=== PATIENT | male | born 1940 | race Caucasian/White ===

== ENCOUNTER 2016-08-12 12:43 | Inpatient (IN) ==
--- NOTE | 2016-08-12 12:52 | Emergency Department Note ---
Disposition Clinical Impression: Severe sepsis, Dehydration, Weakness, Parkinsons disease, Frail elderly, Cerebral ischemia, UTI (urinary tract infection), Anemia Disposition: Admitted As Inpatient Referrals: Nir Evans MD [Primary Care Provider] - General Adult HPI - General Stated complaint: possible CVA Time Seen by Provider: 08/12/16 12:51 - History of Present Illness HPI Narrative: 76-year-old male comes in from home, he was brought in by his daughter and his . They report patient felt weak last evening before bed and became weak hurt about 11:30 today. They called EMS who were given to take him to open his hospital but the family did not want him to go there so they put him in the car and came here. They live in [facility]. The patient did not fall. They report he was generally weak and could not stand up well and they had to assist him. They report he was shaking and jerking of little bit but the patient states he remembers the entire event. There is no history of overt seizure. He is not known to be diabetic. The patient denies chest pain shortness of breath abdominal pain vomiting or diarrhea. The patient has had no trouble moving his arms or legs independently no slurred speech or facial droop. The family members report that they had him hold his arm up and out and he was able to do this, they also report he is able to stick his tongue out straight, they were assessing at home for possible stroke, they do not think he had a stroke because he was able to move his arms and legs properly and stick his tongue out straight.. He does have a history of Parkinson's disease and is generally weak in the morning, they report they think he was weaker this morning. No fevers coughs or acute back pain or headache are reported. - Related Data Home Medications Medication Instructions Recorded Confirmed Aspirin [Ecotrin] 325 mg PO DAILY 02/21/16 08/12/16 Atenolol [Tenormin] 25 mg PO DAILY 02/21/16 08/12/16 Carbidopa/Levodopa 25/100 [Sinemet 2 tab PO 5XD 02/21/16 08/12/16 25/100] Citalopram [CeleXA] 20 mg PO DAILY 02/21/16 08/12/16 Omeprazole [PriLOSEC] 20 mg PO DAILY 02/21/16 08/12/16 Simvastatin [Zocor] 20 mg PO HS 02/21/16 08/12/16 Amoxicillin [Amoxil] 500 mg PO TID 08/12/16 08/12/16 Cyanocobalamin (Vitamin B-12) 1,000 mcg PO DAILY 08/12/16 08/12/16 [Vitamin B12] Gabapentin [Neurontin] 300 mg PO TID 08/12/16 08/12/16 Allergies Allergy/AdvReac Type Severity Reaction Status Date / Time Sulfa (Sulfonamide AdvReac Hives Verified 08/12/16 13:02 Antibiotics) All systems ED: reviewed and negative except as stated. Past Medical History - Past Medical History Medical history: Reports: other (Parkinson's disease.) - Social History Smoking Status: Never smoker Alcohol use: Reports: none Drug use: Reports: none Physical Exam - General Limitations: no limitations General appearance: alert, in no apparent distress - Head Head exam: atraumatic, normocephalic, normal inspection - Eye Eye exam: Present: normal appearance, PERRL, EOMI - ENT ENT exam: normal exam, normal oropharynx, mucous membranes moist, TM's normal bilaterally, normal external ear exam - Neck Neck exam: Present: normal inspection, full ROM, trachea midline - Chest Chest inspection: Present: symmetric chest wall rise. Absent: tenderness - Respiratory Respiratory exam: Present: normal lung sounds bilaterally. Absent: respiratory distress, wheezes, accessory muscle use, prolonged expiratory phase - Cardiovascular Cardiovascular exam: Present: regular rate, normal rhythm, normal heart sounds - Abdominal Exam Abdominal exam: Present: soft, Non-Tender, normal bowel sounds. Absent: tenderness, distention, guarding, rebound, rigidity - Extremities Exam Extremities exam: Present: normal inspection, full ROM, normal capillary refill. Absent: tenderness, pedal edema, joint swelling, calf tenderness - Expanded Lower Extremity Exam Lower leg exam: Absent: Homans' sign Neurovascular/Tendon exam: Present: normal capillary refill. Absent: motor deficit, sensory deficit, tendon deficit, extremity cold to touch, pallor - Back Exam Back exam: Present: normal inspection, full ROM. Absent: tenderness, CVA tenderness (R), CVA tenderness (L), vertebral tenderness - Neurological Exam Neurological exam: Present: alert, oriented X3, CN II-XII intact. Absent: motor sensory deficit - Psychiatric Psychiatric exam: Present: normal affect, normal mood - Skin Skin exam: Present: warm, dry, intact, normal color. Absent: rash, cyanosis, diaphoresis, erythema, pallor, mottled Course - Reevaluation(s) Reevaluation #1: The family reports that the patient has an treated or a toothache with antibiotics over the last several days. He has now developed some diarrhea. I do not detect acute oropharyngeal pathology or dental abscess on examination. Vital Signs Temperature 97.7 F 08/12/16 12:53 Pulse Rate 76 08/12/16 12:53 Respiratory Rate 16 08/12/16 12:53 Blood Pressure 95/55 08/12/16 12:53 O2 Sat by Pulse Oximetry 95 08/12/16 12:53 Temperature 97.7 F 08/12/16 12:53 Pulse Rate 85 08/12/16 16:23 Respiratory Rate 16 08/12/16 16:23 Blood Pressure 119/55 08/12/16 16:23 O2 Sat by Pulse Oximetry 97 08/12/16 16:23 Oxygen Delivery Oxygen Delivery Room Air Medical Decision Making - MDM Narrative Medical decision making narrative: There were reports of some diarrhea however the patient produced a large stool here which did not appear to be loose or watery. The patient has an elevated white blood cell count, elevated lactate, an abnormal urinalysis, he meet sepsis criteria, he is elderly and feels very weak, he was given IV fluids, and antibiotics. The patient is very ill and will require hospital admission. I discussed the case with the hospitalist on-call who has accepted the patient to their care. - Lab Data Lab results reviewed: Yes I reviewed the patient's lab results. Result diagrams: 08/12/16 13:30 08/12/16 13:30 Lab Results 08/12/16 08/12/16 08/12/16 Range/Units 13:30 13:30 13:30 WBC 23.4 H (4.3-11.1) K/mcL RBC 4.15 L (4.19-5.50) M/mcL Hgb 12.4 L (12.9-16.9) g/dL Hct 37.8 (37.5-50.1) % MCV 91.1 (83.0-100.0) fL MCH 29.9 (28.0-33.3) pg MCHC 32.8 (31.6-35.5) g/dL RDW 12.6 (11.5-14.5) % Plt Count 210 (140-400) K/mcL MPV 9.8 (9.4-12.4) fL Immature Gran % 0.8 (0-4) % Seg Neutrophils % 89.3 % Lymphocytes % 3.4 % Monocytes % 6.3 % Eosinophils % 0.0 % Basophils % 0.2 % Neutrophils # 20.9 H (1.6-8.9) K/mcL Lymphocytes # 0.8 (0.6-4.6) K/mcL Monocytes # 1.5 H (0.0-1.3) K/mcL Eosinophils # 0.0 (0.0-0.6) K/mcL Basophils # 0.0 (0.0-0.2) K/mcL Immature Plt Fraction 3.4 (1.1-6.1) % PT 14.1 H (9.4-12.1) Seconds INR 1.3 APTT 31.2 (26.0-36.0) Seconds Sodium 137 (136-145) mEq/L Potassium 4.2 (3.5-4.5) mEq/L Chloride 98 (98-109) mEq/L Carbon Dioxide 27 (19-29) mEq/L BUN 28 H (8-26) mg/dL Creatinine 1.44 H (0.72-1.25) mg/dL Est GFR ( Amer) 58 L (> 60) Est GFR (Non-Af Amer) 48 L (> 60) BUN/Creatinine Ratio 19 (6-26) Glucose 145 H (70-99) mg/dL Calculated Osmolality 292 (280-300) Lactic Acid (0.5-2.2) mmol/L Calcium 9.2 (8.6-10.8) mg/dL Total Bilirubin 0.9 (0.2-1.2) mg/dL Direct Bilirubin 0.4 (0.0-0.5) mg/dL Indirect Bilirubin 0.5 (0.0-1.2) mg/dL AST 8 (5-34) Units/L ALT < 6 (0-55) Units/L Alkaline Phosphatase 53 (38-126) Units/L Ammonia (18-72) mcmol/L Troponin I (0-0.03) ng/mL C-Reactive Protein 92 H (Less than 5) mg/L Serum Total Protein 7.3 (6.0-8.3) g/dL Albumin 3.5 (3.5-5.0) g/dL Globulin 3.8 H (2.4-3.5) g/dL Albumin/Globulin Ratio 0.9 L (1.1-2.2) Urine Color (Yellow) Urine Clarity (Clear) Urine pH (5.0-8.0) pH Units Ur Specific [place] (1.010-1.025) Urine Protein (Neg-Trace) mg/dL Urine Glucose (UA) (Normal) mg/dL Urine Ketones (Negative) mg/dL Urine Blood (Negative) Urine Nitrite (Negative) Urine Bilirubin (Negative) Urine Urobilinogen (Normal) mg/dL Ur Leukocyte Esterase (Negative) Urine Microscopic RBC (0-3) per hpf Urine Microscopic WBC (0-3) per hpf Ur Squamous Epith Cells (None-Few) per lpf Urine Bacteria (None-Few) per hpf Hyaline Casts (None-Few) per lpf Ur Culture Indicated? (NO) Urine Opiates Screen (Cczqqk=802) ng/mL Ur Barbiturates Screen (Coabgp=937) ng/mL Ur Phencyclidine Scrn (Cutoff=25) ng/mL Ur Amphetamines Screen (Schnke=4719) ng/mL U Benzodiazepines Scrn (Gtcicn=676) ng/mL Urine Cocaine Screen (Cutoff= 300) ng/mL U Marijuana (THC) Screen (Cutoff = 50) ng/mL Ethyl Alcohol < 10 (0-10) mg/dL 08/12/16 08/12/16 08/12/16 Range/Units 13:30 13:30 13:30 WBC (4.3-11.1) K/mcL RBC (4.19-5.50) M/mcL Hgb (12.9-16.9) g/dL Hct (37.5-50.1) % MCV (83.0-100.0) fL MCH (28.0-33.3) pg MCHC (31.6-35.5) g/dL RDW (11.5-14.5) % Plt Count (140-400) K/mcL MPV (9.4-12.4) fL Immature Gran % (0-4) % Seg Neutrophils % % Lymphocytes % % Monocytes % % Eosinophils % % Basophils % % Neutrophils # (1.6-8.9) K/mcL Lymphocytes # (0.6-4.6) K/mcL Monocytes # (0.0-1.3) K/mcL Eosinophils # (0.0-0.6) K/mcL Basophils # (0.0-0.2) K/mcL Immature Plt Fraction (1.1-6.1) % PT (9.4-12.1) Seconds INR APTT (26.0-36.0) Seconds Sodium (136-145) mEq/L Potassium (3.5-4.5) mEq/L Chloride (98-109) mEq/L Carbon Dioxide (19-29) mEq/L BUN (8-26) mg/dL Creatinine (0.72-1.25) mg/dL Est GFR ( Amer) (> 60) Est GFR (Non-Af Amer) (> 60) BUN/Creatinine Ratio (6-26) Glucose (70-99) mg/dL Calculated Osmolality (280-300) Lactic Acid 3.2 H (0.5-2.2) mmol/L Calcium (8.6-10.8) mg/dL Total Bilirubin (0.2-1.2) mg/dL Direct Bilirubin (0.0-0.5) mg/dL Indirect Bilirubin (0.0-1.2) mg/dL AST (5-34) Units/L ALT (0-55) Units/L Alkaline Phosphatase (38-126) Units/L Ammonia 14 L (18-72) mcmol/L Troponin I 0.01 (0-0.03) ng/mL C-Reactive Protein (Less than 5) mg/L Serum Total Protein (6.0-8.3) g/dL Albumin (3.5-5.0) g/dL Globulin (2.4-3.5) g/dL Albumin/Globulin Ratio (1.1-2.2) Urine Color (Yellow) Urine Clarity (Clear) Urine pH (5.0-8.0) pH Units Ur Specific [place] (1.010-1.025) Urine Protein (Neg-Trace) mg/dL Urine Glucose (UA) (Normal) mg/dL Urine Ketones (Negative) mg/dL Urine Blood (Negative) Urine Nitrite (Negative) Urine Bilirubin (Negative) Urine Urobilinogen (Normal) mg/dL Ur Leukocyte Esterase (Negative) Urine Microscopic RBC (0-3) per hpf Urine Microscopic WBC (0-3) per hpf Ur Squamous Epith Cells (None-Few) per lpf Urine Bacteria (None-Few) per hpf Hyaline Casts (None-Few) per lpf Ur Culture Indicated? (NO) Urine Opiates Screen (Wqqkah=896) ng/mL Ur Barbiturates Screen (Xkacfj=875) ng/mL Ur Phencyclidine Scrn (Cutoff=25) ng/mL Ur Amphetamines Screen (Uradqd=8391) ng/mL U Benzodiazepines Scrn (Xybjpk=342) ng/mL Urine Cocaine Screen (Cutoff= 300) ng/mL U Marijuana (THC) Screen (Cutoff = 50) ng/mL Ethyl Alcohol (0-10) mg/dL 08/12/16 08/12/16 Range/Units 16:33 16:33 WBC (4.3-11.1) K/mcL RBC (4.19-5.50) M/mcL Hgb (12.9-16.9) g/dL Hct (37.5-50.1) % MCV (83.0-100.0) fL MCH (28.0-33.3) pg MCHC (31.6-35.5) g/dL RDW (11.5-14.5) % Plt Count (140-400) K/mcL MPV (9.4-12.4) fL Immature Gran % (0-4) % Seg Neutrophils % % Lymphocytes % % Monocytes % % Eosinophils % % Basophils % % Neutrophils # (1.6-8.9) K/mcL Lymphocytes # (0.6-4.6) K/mcL Monocytes # (0.0-1.3) K/mcL Eosinophils # (0.0-0.6) K/mcL Basophils # (0.0-0.2) K/mcL Immature Plt Fraction (1.1-6.1) % PT (9.4-12.1) Seconds INR APTT (26.0-36.0) Seconds Sodium (136-145) mEq/L Potassium (3.5-4.5) mEq/L Chloride (98-109) mEq/L Carbon Dioxide (19-29) mEq/L BUN (8-26) mg/dL Creatinine (0.72-1.25) mg/dL Est GFR ( Amer) (> 60) Est GFR (Non-Af Amer) (> 60) BUN/Creatinine Ratio (6-26) Glucose (70-99) mg/dL Calculated Osmolality (280-300) Lactic Acid (0.5-2.2) mmol/L Calcium (8.6-10.8) mg/dL Total Bilirubin (0.2-1.2) mg/dL Direct Bilirubin (0.0-0.5) mg/dL Indirect Bilirubin (0.0-1.2) mg/dL AST (5-34) Units/L ALT (0-55) Units/L Alkaline Phosphatase (38-126) Units/L Ammonia (18-72) mcmol/L Troponin I (0-0.03) ng/mL C-Reactive Protein (Less than 5) mg/L Serum Total Protein (6.0-8.3) g/dL Albumin (3.5-5.0) g/dL Globulin (2.4-3.5) g/dL Albumin/Globulin Ratio (1.1-2.2) Urine Color Yellow (Yellow) Urine Clarity Hazy (Clear) Urine pH 5.0 (5.0-8.0) pH Units Ur Specific [place] 1.021 (1.010-1.025) Urine Protein Trace (Neg-Trace) mg/dL Urine Glucose (UA) Normal (Normal) mg/dL Urine Ketones Trace H (Negative) mg/dL Urine Blood Negative (Negative) Urine Nitrite Negative (Negative) Urine Bilirubin Negative (Negative) Urine Urobilinogen Normal (Normal) mg/dL Ur Leukocyte Esterase Large H (Negative) Urine Microscopic RBC 3-5 H (0-3) per hpf Urine Microscopic WBC TNTC H (0-3) per hpf Ur Squamous Epith Cells Moderate H (None-Few) per lpf Urine Bacteria Moderate H (None-Few) per hpf Hyaline Casts Moderate H (None-Few) per lpf Ur Culture Indicated? YES A (NO) Urine Opiates Screen Negative (Ewgpta=926) ng/mL Ur Barbiturates Screen Negative (Kroykf=335) ng/mL Ur Phencyclidine Scrn Negative (Cutoff=25) ng/mL Ur Amphetamines Screen Negative (Hnzqdt=5469) ng/mL U Benzodiazepines Scrn Negative (Fpoarn=625) ng/mL Urine Cocaine Screen Negative (Cutoff= 300) ng/mL U Marijuana (THC) Screen Negative (Cutoff = 50) ng/mL Ethyl Alcohol (0-10) mg/dL - Radiology Data Radiology results reviewed: Yes I reviewed the patient's radiology results.
[2016-08-12] MEDS ORDERED: 0.9 % Sodium Chloride 1,000 ML IVC ONE (13:00)
[2016-08-12 13:37] LABS: Basophils % 0.2 %; Hematocrit 37.8 % (37.5-50.1); Hemoglobin 12.4 g/dL (12.9-16.9); Immature Granulocytes % 0.8 % (0-4); Immature Platelets 3.4 % (1.1-6.1); Lymphocytes # 0.8 K/mcL (0.6-4.6); Lymphocytes % 3.4 %; Mean Corpuscular HGB Conc 32.8 g/dL (31.6-35.5); Mean Corpuscular Hemoglobin 29.9 pg (28.0-33.3); Mean Corpuscular Volume 91.1 fL (83.0-100.0); Mean Platelet Volume 9.8 fL (9.4-12.4); Monocytes # 1.5 K/mcL (0.0-1.3); Monocytes % 6.3 %; Neutrophils # 20.9 K/mcL (1.6-8.9); Platelet Count 210 K/mcL (140-400); Red Blood Count 4.15 M/mcL (4.19-5.50); Red Cell Distribution Width 12.6 % (11.5-14.5); Segmented Neutrophils % 89.3 %
[2016-08-12 13:45] LABS: INR 1.3; Prothrombin Time 14.1 Seconds (9.4-12.1)
[2016-08-12 13:47] LABS: Activated Partial Thrombo Time 31.2 Seconds (26.0-36.0)
[2016-08-12 13:51] LABS: Albumin 3.5 g/dL (3.5-5.0); Albumin/Globulin Ratio 0.9 (1.1-2.2); Alkaline Phosphatase 53 Units/L (38-126); Aspartate Amino Transferase 8 Units/L (5-34); BUN/Creatinine Ratio 19 (6-26); Bilirubin,Direct 0.4 mg/dL (0.0-0.5); Bilirubin,Indirect 0.5 mg/dL (0.0-1.2); Bilirubin,Total 0.9 mg/dL (0.2-1.2); Blood Urea Nitrogen 28 mg/dL (8-26); C-Reactive Protein 92 mg/L (Less than 5); Calcium 9.2 mg/dL (8.6-10.8); Carbon Dioxide 27 mEq/L (19-29); Chloride 98 mEq/L (98-109); Globulin 3.8 g/dL (2.4-3.5); Glucose 145 mg/dL (70-99); Osmolality,Calculated 292 (280-300); Potassium 4.2 mEq/L (3.5-4.5); Sodium 137 mEq/L (136-145); Total Protein 7.3 g/dL (6.0-8.3); eGFR For African Americans 58 (> 60); eGFR For Non-African Americans 48 (> 60)
[2016-08-12 13:52] LABS: Alanine Aminotransferase < 6 Units/L (0-55)
[2016-08-12 14:06] LABS: Ethanol < 10 mg/dL (0-10)
[2016-08-12] MEDS ORDERED: Vancomycin 1,000 MG in D5% in Water 250 ML IVPB ONE (14:19)
[2016-08-12] MEDS ORDERED: Piperacillin/Tazobactam 3.375 GM in D5% in Water (Mini-Bag+) 100 ML IVPB ONE (14:19)
[2016-08-12] MEDS ORDERED: metroNIDAZOLE 500 MG TABLET PO ONE (14:19)
[2016-08-12] MEDS ORDERED: methylPREDNISolone 125 MG/2 ML VIAL IVP ONE (15:16)
[2016-08-12] MEDS: 0.9 % Sodium Chloride 1,000 ML IVC SCH ×4 (16:29→21:39)
[2016-08-12 16:58] LABS: Bilirubin,Urine Negative (Negative); Blood,Urine Negative (Negative); Color,Urine Yellow (Yellow); Glucose,Urine (UA) Normal (Normal); Ketones,Urine Trace mg/dL (Negative); Leukocyte Esterase,Urine Large (Negative); Nitrite,Urine Negative (Negative); Protein,Urine Trace mg/dL (Neg-Trace); Specific Gravity,Urine 1.021 (1.010-1.025); Urobilinogen,Urine Normal (Normal)
[2016-08-12 17:01] LABS: Squamous Epithelial Cell,Urine Moderate per lpf (None-Few); WBC,Urine TNTC per hpf (0-3)
[2016-08-12 17:02] LABS: Clarity,Urine Hazy (Clear)
[2016-08-12 17:03] LABS: Amphetamine Screen,Urine Negative ng/mL (Cutoff=1000); Barbiturate Screen,Urine Negative ng/mL (Cutoff=200); Benzodiazepines Screen,Urine Negative ng/mL (Cutoff=200); Cannabinoid Screen,Urine Negative ng/mL (Cutoff = 50); Cocaine Screen,Urine Negative ng/mL (Cutoff= 300); Opiate Screen,Urine Negative ng/mL (Cutoff=300); Phencyclidine Screen,Urine Negative ng/mL (Cutoff=25)
[2016-08-12 17:19] LABS: Hyaline Casts,Urine Moderate per lpf (None-Few)
[2016-08-12 17:20] LABS: Bacteria,Urine Moderate per hpf (None-Few)
[2016-08-12] MEDS ORDERED: Naloxone 0.4 MG/ML INJ IVP PRN (17:49)
[2016-08-12] MEDS ORDERED: Ondansetron 4 MG/2 ML VIAL IVP PRN (19:43)
[2016-08-12] MEDS ORDERED: Acetaminophen 325 MG TABLET PO PRN (19:43)
--- NOTE | 2016-08-12 20:02 | Internal Med History&Physical ---
Date of Encounter: 08/12/16 Time of Encounter: 19:25 Assessment and Plan (1) Severe sepsis Current visit: Yes Status: Acute The patient has altered mental status, elevated WBC, elevated lactate level, relatively low BP in the emergency room. Consider severe sepsis. - Early goal directed IVF resuscitation started from ER. - Vanco and Zosyn was given, will continue. - Lactate level is getting down, ental status has improved after treatment. - Urine analysis shows UTI. Chest x-ray unremarkable. Abdominal exam is benign. Consider urosepsis. - Blood culture and urine culture sent. - Place patient on continuous close monitoring. Patient is at high risk because of his on vancomycin and he has acute altered mental status. (2) Altered mental status Current visit: Yes Status: Acute Probably due to sepsis. Improved after treatment. Continue close monitoring. Qualifiers: Altered mental status type: disorientation Qualified Code(s): R41.0 - Disorientation, unspecified (3) Parkinsons disease Current visit: Yes Status: Acute Continue home medication (4) UTI (urinary tract infection) Current visit: Yes Status: Acute Patient has chronic urinary incontinence. Urinalysis shows UTI. Urine culture sent. We will also order ultrasound renal to rule out obstruction. Qualifiers: Urinary tract infection type: acute cystitis Hematuria presence: without hematuria Qualified Code(s): N30.00 - Acute cystitis without hematuria (5) DVT prophylaxis Current visit: Yes Status: Acute Heparin subcutaneously Internal Medicine - H&P: HPI Chief complaint: AMS Admitted From: Home Plans for Post Hospital Care: Home History of present illness: Mr. Elliott is a 76 year old male with a history of Parkinson disease and hypertension presented to ER for altered mental status. When I saw patient patient is mentally clear already. Patient and family said this morning about 1 :00 he was confused, disoriented. He cannot get up, which he usually can do. Patient has no fever, no nausea, no abdominal pain, no chest pain or shortness of breath. Patient said that he has episode of headache but not right now. He has no runing nose, sore throat, or cough. Patient said he has one loose stool, not really diarrhea. He denies dysuria, burning. He has chronic urinary incontinence for about one year. I discussed CODE STATUS with pt and family, he is full code. Past Med Surg Social Fam HX - Past Medical History Medical history: other (Parkinson's disease.) Psychiatric history: no psych history - Social History Smoking Status: Never smoker Smokeless Tobacco Status: No Alcohol use: none Drug use: none Internal Medicine - H&P: Meds Aspirin [Ecotrin] 325 mg PO DAILY 02/21/16 [History] Atenolol [Tenormin] 25 mg PO DAILY 02/21/16 [History] Carbidopa/Levodopa 25/100 [Sinemet 25/100] 2 tab PO 5XD 02/21/16 [History] Citalopram [CeleXA] 20 mg PO DAILY 02/21/16 [History] Omeprazole [PriLOSEC] 20 mg PO DAILY 02/21/16 [History] Simvastatin [Zocor] 20 mg PO HS 02/21/16 [History] Amoxicillin [Amoxil] 500 mg PO TID 08/12/16 [History] Cyanocobalamin (Vitamin B-12) [Vitamin B12] 1,000 mcg PO DAILY 08/12/16 [History ] Gabapentin [Neurontin] 300 mg PO TID 08/12/16 [History] Allergies Sulfa (Sulfonamide Antibiotics) Adverse Reaction (Verified 08/12/16 13:02) Hives All Systems PM: A 10-system review of systems was performed and is negative for pertinent findings except as documented above in the HPI. - Constitutional Vitals: Temp Pulse Resp BP Pulse Ox 97.4 F L 82 20 132/67 95 08/12/16 18:55 08/12/16 18:55 08/12/16 18:55 08/12/16 18:55 08/12/16 18:55 General appearance: Present: A&O X 3, no acute distress, answers questions appropriately - Head Head exam: Present: atraumatic, normocephalic - Eye Eye exam: Present: PERRL, conjuntiva pink, sclera anicteric Pupils: Present: PERRL - Neck Neck exam general surgery: Present: supple, trachea midline. Absent: lymphadenopathy - Respiratory Respiratory exam: Present: CTAB. Absent: accessory muscle use, rales, rhonchi, wheezes - Cardiovascular Cardiovascular exam: Present: RRR, +S1, +S2. Absent: diastolic murmur, gallop, rubs, systolic murmur - GI/Abdominal GI/Abdominal exam: Present: normal bowel sounds, soft, no peritoneal signs. Absent: distended, tenderness - Extremities Exam Extremities exam: Present: warm, radial pulses palpable and symetrical. Absent : calf tenderness, cyanotic, pedal edema - Neurological Exam Neurological exam: Present: CN II-XII intact, oriented X3, no focal deficits. Absent: pronater drift, facial droop, speech deficit - Skin Skin exam: Present: dry, intact Internal Med - H&P Results - Labs CBC & Chem 7: 08/12/16 13:30 08/12/16 13:30
[2016-08-12] MEDS ORDERED: Vancomycin 750 MG in D5% in Water 250 ML IVPB ONE (20:03)
[2016-08-12] MEDS: Carbidopa/Levodopa 25/100 TABLET PO SCH ×2 (21:39→21:46)
[2016-08-12] MEDS: Piperacillin/Tazobactam 3.375 GM in D5% in Water (Mini-Bag+) 100 ML IVPB SCH (23:49)
[2016-08-13 04:11] LABS: Basophils % 0.2 %; Eosinophils % 0.1 %; Hematocrit 31.4 % (37.5-50.1); Immature Granulocytes % 0.9 % (0-4); Lymphocytes % 6.6 %; Mean Corpuscular HGB Conc 33.1 g/dL (31.6-35.5); Mean Corpuscular Hemoglobin 30.2 pg (28.0-33.3); Mean Corpuscular Volume 91.3 fL (83.0-100.0); Mean Platelet Volume 9.7 fL (9.4-12.4); Monocytes # 0.9 K/mcL (0.0-1.3); Monocytes % 6.1 %; Neutrophils # 12.9 K/mcL (1.6-8.9); Platelet Count 133 K/mcL (140-400); Red Blood Count 3.44 M/mcL (4.19-5.50); Segmented Neutrophils % 86.1 %
[2016-08-13 04:14] LABS: Hemoglobin 10.4 g/dL (12.9-16.9)
[2016-08-13 04:22] LABS: BUN/Creatinine Ratio 19 (6-26); Blood Urea Nitrogen 18 mg/dL (8-26); Calcium 7.9 mg/dL (8.6-10.8); Carbon Dioxide 26 mEq/L (19-29); Chloride 106 mEq/L (98-109); Glucose 119 mg/dL (70-99); Osmolality,Calculated 289 (280-300); Potassium 3.5 mEq/L (3.5-4.5); Sodium 138 mEq/L (136-145); eGFR For African Americans > 60 (> 60); eGFR For Non-African Americans > 60 (> 60)
[2016-08-13 04:23] LABS: Magnesium 1.4 mg/dL (1.6-2.6); Phosphorous 2.3 mg/dL (2.3-4.7)
[2016-08-13] MEDS ORDERED: Vancomycin 1,750 MG in D5% in Water 500 ML IVPB SCH (05:00)
[2016-08-13] MEDS: *HR* Heparin 5,000 UNIT/ML VIAL SQ SCH ×2 (06:08→16:07)
[2016-08-13] MEDS: 0.9 % Sodium Chloride 1,000 ML IVC SCH ×2 (06:08→07:45)
[2016-08-13] MEDS: Piperacillin/Tazobactam 3.375 GM in D5% in Water (Mini-Bag+) 100 ML IVPB SCH ×3 (07:45→23:12)
[2016-08-13] MEDS: Aspirin Enteric Coated 325 MG Tablet PO SCH (07:46)
[2016-08-13] MEDS: Carbidopa/Levodopa 25/100 TABLET PO SCH ×5 (07:47→23:11)
--- NOTE | 2016-08-13 09:49 | Internal Med Progress Note ---
Date of Encounter: 08/13/16 Time of Encounter: 09:49 - Assessment and plan (1) Severe sepsis Current Visit: Yes Status: Acute Assessment and plan: Secondary to UTI Lactic acidosis and CLARITA has resolved Mental status is back to baseline BP is WNL Follow urine and blood cultures Patient is on vancomycin and Zosyn Await cultures, and de-escalate prn High risk patient due to sepsis and use of vancomycin (2) Parkinsons disease Current Visit: Yes Status: Chronic Assessment and plan: Chronic, stable (3) UTI (urinary tract infection) Current Visit: Yes Status: Acute Assessment and plan: As in sepsis Renal USS with no stones, cholelithiasis without cholecystitis, bladder wall thickening Qualifiers: Urinary tract infection type: acute cystitis Hematuria presence: without hematuria Qualified Code(s): N30.00 - Acute cystitis without hematuria (4) Anemia Current Visit: Yes Status: Chronic Assessment and plan: Hb at baseline Qualifiers: Anemia type: unspecified type Qualified Code(s): D64.9 - Anemia, unspecified (5) Altered mental status Current Visit: Yes Status: Resolved Assessment and plan: Resolved Possibly from sepsis Head CT negative Qualifiers: Altered mental status type: disorientation Qualified Code(s): R41.0 - Disorientation, unspecified (6) Acute kidney failure Current Visit: Yes Status: Acute Assessment and plan: Resolved with IVF Qualifiers: Acute renal failure type: unspecified Qualified Code(s): N17.9 - Acute kidney failure, unspecified - Subjective Interval history: Seen at bedside with family 76 M with Parkinsonism, chronic anemia, HTN, being managed for severe sepsis Denies new complains Reports feeling better and is back to his baseline - Constitutional Vitals: Temp Pulse Resp BP Pulse Ox 98.2 F 63 18 132/63 95 08/13/16 07:45 08/13/16 07:45 08/13/16 07:45 08/13/16 07:45 08/13/16 07:45 General appearance: Present: A&O X 3, no acute distress, answers questions appropriately - Head Head exam: Present: atraumatic, normocephalic - Eye Eye exam: Present: PERRL, conjuntiva pink, sclera anicteric Pupils: Present: PERRL - Neck Neck exam general surgery: Present: supple, trachea midline. Absent: lymphadenopathy - Respiratory Respiratory exam: Present: CTAB. Absent: accessory muscle use, rales, rhonchi, wheezes - Cardiovascular Cardiovascular exam: Present: RRR, +S1, +S2. Absent: diastolic murmur, gallop, rubs, systolic murmur - GI/Abdominal GI/Abdominal exam: Present: normal bowel sounds, soft, no peritoneal signs. Absent: distended, tenderness - Extremities Exam Extremities exam: Present: warm, radial pulses palpable and symetrical. Absent : calf tenderness, cyanotic, pedal edema - Neurological Exam Neurological exam: Present: alert, CN II-XII intact, oriented X3, no focal deficits. Absent: pronater drift, facial droop, speech deficit Additional comments: pin-rolling tremors - Skin Skin exam: Present: dry, intact Internal Medicine: Result - Labs CBC & Chem 7: 08/13/16 04:01 08/13/16 04:01 Labs: Short CBC 08/13/16 Range/Units 04:01 WBC 15.0 H (4.3-11.1) K/mcL Hgb 10.4 L D (12.9-16.9) g/dL Hct 31.4 L (37.5-50.1) % Plt Count 133 L (140-400) K/mcL Neutrophils # 12.9 H (1.6-8.9) K/mcL BMP 08/13/16 04:01 Sodium 138 Potassium 3.5 Chloride 106 Carbon Dioxide 26 BUN 18 D Creatinine 0.96 Glucose 119 H Calcium 7.9 L - ABG Interpretation ABG results: PT/INR, D-dimer PT 14.1 Seconds (9.4-12.1) H 08/12/16 13:30 - Impressions Impressions Retroperitoneum Ultrasound 08/13/16 08:30 IMPRESSION: 1. Normal bilateral kidneys. Simple right renal cyst. 2. Cholelithiasis with no evidence of acute cholecystitis. 3. Limited evaluation of the bladder due to inadequate distention. D/ / 08/13/2016 09:41:13 Tom Harper MD / ana Interpreting Provider: Tom Harper MD Consult Discharge Plan - Plan Referrals: Nir Evans MD [Primary Care Provider] -
[2016-08-13] MEDS ORDERED: Aminoglycoside Consult 1 EACH MC ONE (12:00)
[2016-08-13] MEDS ORDERED: 0.9 % Sodium Chloride 1,000 ML IVC SCH (13:26)
[2016-08-13] MEDS ORDERED: Magnesium Sulfate 2 GM in D5% in Water 100 ML IVPB ONE (15:00)
[2016-08-13] MEDS ORDERED: Vancomycin 1,250 MG in D5% in Water 250 ML IVPB SCH (16:00)
--- NOTE | 2016-08-13 17:12 | Electrocardiograph Report ---
[place] [id number] Test Date: 2016-08-12 Pat Name: Yassine Elliott Department: 102 Room: 04 Gender: M [employer]: Gamal : 1940 Requested By: Nils Sanders Order Number: [id number] Reading MD: Brad Grider Measurements Intervals [place] Rate: 75 P: 127 OK: 357 QRS: 211 QRSD: 156 T: 85 QT: 395 QTc: 424 Interpretive Statements PROBABLE SINUS RHYTHM ARTIFACT LIMITS INTERPRETATION Electronically Signed On 08-13-2016 17:11:21 EDT by Brad Grider
[2016-08-14 05:00] LABS: Basophils % 0.2 %; Eosinophils % 0.3 %; Hematocrit 32.2 % (37.5-50.1); Hemoglobin 10.7 g/dL (12.9-16.9); Lymphocytes # 0.7 K/mcL (0.6-4.6); Lymphocytes % 5.7 %; Mean Corpuscular HGB Conc 33.2 g/dL (31.6-35.5); Mean Corpuscular Hemoglobin 30.3 pg (28.0-33.3); Mean Corpuscular Volume 91.2 fL (83.0-100.0); Mean Platelet Volume 10.3 fL (9.4-12.4); Monocytes # 0.6 K/mcL (0.0-1.3); Monocytes % 4.9 %; Neutrophils # 11.4 K/mcL (1.6-8.9); Platelet Count 154 K/mcL (140-400); Red Blood Count 3.53 M/mcL (4.19-5.50); Segmented Neutrophils % 87.9 %
[2016-08-14 05:28] LABS: BUN/Creatinine Ratio 15 (6-26); Blood Urea Nitrogen 14 mg/dL (8-26); Calcium 8.4 mg/dL (8.6-10.8); Carbon Dioxide 27 mEq/L (19-29); Chloride 107 mEq/L (98-109); Glucose 160 mg/dL (70-99); Osmolality,Calculated 292 (280-300); Potassium 3.5 mEq/L (3.5-4.5); Sodium 139 mEq/L (136-145); eGFR For African Americans > 60 (> 60); eGFR For Non-African Americans > 60 (> 60)
[2016-08-14] MEDS: *HR* Heparin 5,000 UNIT/ML VIAL SQ SCH ×2 (06:23→17:36)
[2016-08-14] MEDS: Piperacillin/Tazobactam 3.375 GM in D5% in Water (Mini-Bag+) 100 ML IVPB SCH (07:54)
[2016-08-14] MEDS: Aspirin Enteric Coated 325 MG Tablet PO SCH (07:54)
[2016-08-14] MEDS: Carbidopa/Levodopa 25/100 TABLET PO SCH ×4 (08:08→21:26)
[2016-08-14] MEDS: Gabapentin 300 MG CAPSULE PO SCH ×3 (08:10→21:26)
--- NOTE | 2016-08-14 08:13 | Internal Med Progress Note ---
Date of Encounter: 08/14/16 Time of Encounter: 08:11 - Assessment and plan (1) Severe sepsis Current Visit: Yes Status: Acute Assessment and plan: Secondary to UTI. resolved. negative urine and blood cultures Patient is on vancomycin and Zosyn change antibiotics to omnicef. close monitor. awaiting PT/OT (2) Acute metabolic encephalopathy Current Visit: Yes Status: Resolved Assessment and plan: secondary to sepsis (3) UTI (urinary tract infection) Current Visit: Yes Status: Acute Assessment and plan: As in sepsis Qualifiers: Urinary tract infection type: acute cystitis Hematuria presence: without hematuria Qualified Code(s): N30.00 - Acute cystitis without hematuria (4) Parkinsons disease Current Visit: Yes Status: Chronic Assessment and plan: Chronic, stable (5) Anemia Current Visit: Yes Status: Chronic Assessment and plan: Hb at baseline Qualifiers: Anemia type: unspecified type Qualified Code(s): D64.9 - Anemia, unspecified - Subjective Interval history: patient still has generalized weakness, he reports that prior to coming to the hospital he was able to ambulate with minimal help. he needs two persons to go to the bathroom - Constitutional Vitals: Temp Pulse Resp BP Pulse Ox 98.2 F 78 18 188/90 97 08/14/16 07:25 08/14/16 07:25 08/14/16 07:25 08/14/16 07:25 08/14/16 07:25 General appearance: Present: cooperative, A&O X 3, pleasant, no acute distress, answers questions appropriately - Neck Neck exam general surgery: Present: supple, trachea midline. Absent: lymphadenopathy - Respiratory Respiratory exam: Present: CTAB - Cardiovascular Cardiovascular exam: Present: RRR, systolic murmur - GI/Abdominal GI/Abdominal exam: Present: normal bowel sounds, soft. Absent: distended, tenderness - Extremities Exam Extremities exam: Absent: pedal edema - Neurological Exam Neurological exam: Present: alert, oriented X3, no focal deficits (resting tremor in hands). Absent: facial droop, speech deficit - Skin Skin exam: Present: dry. Absent: rash Internal Medicine: Result - Labs CBC & Chem 7: 08/14/16 04:41 08/14/16 04:41 Labs: Short CBC 08/14/16 Range/Units 04:41 WBC 13.0 H (4.3-11.1) K/mcL Hgb 10.7 L (12.9-16.9) g/dL Hct 32.2 L (37.5-50.1) % Plt Count 154 (140-400) K/mcL Neutrophils # 11.4 H (1.6-8.9) K/mcL BMP 08/14/16 04:41 Sodium 139 Potassium 3.5 Chloride 107 Carbon Dioxide 27 BUN 14 Creatinine 0.96 Glucose 160 H Calcium 8.4 L - ABG Interpretation ABG results: PT/INR, D-dimer PT 14.1 Seconds (9.4-12.1) H 08/12/16 13:30 Consult Discharge Plan - Plan Referrals: Nir Evans MD [Primary Care Provider] - 08/22/16 10:00 am
[2016-08-14] MEDS ORDERED: Furosemide 40 MG/4 ML VIAL IV ONE (15:30)
[2016-08-14] MEDS ORDERED: hydrALAZINE 25 MG TABLET PO SCH (21:00)
[2016-08-14] MEDS: Cefdinir 300 MG CAPSULE PO SCH (21:24)
[2016-08-15] MEDS: Carbidopa/Levodopa 25/100 TABLET PO SCH ×4 (01:03→16:11)
[2016-08-15] MEDS: *HR* Heparin 5,000 UNIT/ML VIAL SQ SCH (04:42)
[2016-08-15 06:13] LABS: Basophils % 0.2 %; Eosinophils % 0.5 %; Hematocrit 34.3 % (37.5-50.1); Hemoglobin 10.9 g/dL (12.9-16.9); Immature Granulocytes % 0.7 % (0-4); Lymphocytes # 0.9 K/mcL (0.6-4.6); Lymphocytes % 10.3 %; Mean Corpuscular HGB Conc 31.8 g/dL (31.6-35.5); Mean Corpuscular Hemoglobin 28.8 pg (28.0-33.3); Mean Corpuscular Volume 90.5 fL (83.0-100.0); Mean Platelet Volume 9.9 fL (9.4-12.4); Monocytes # 0.6 K/mcL (0.0-1.3); Monocytes % 7.1 %; Neutrophils # 7.2 K/mcL (1.6-8.9); Platelet Count 175 K/mcL (140-400); Red Blood Count 3.79 M/mcL (4.19-5.50); Red Cell Distribution Width 12.7 % (11.5-14.5); Segmented Neutrophils % 81.2 %
[2016-08-15 06:22] LABS: BUN/Creatinine Ratio 20 (6-26); Blood Urea Nitrogen 16 mg/dL (8-26); Calcium 8.8 mg/dL (8.6-10.8); Carbon Dioxide 28 mEq/L (19-29); Chloride 103 mEq/L (98-109); Glucose 126 mg/dL (70-99); Magnesium 1.3 mg/dL (1.6-2.6); Osmolality,Calculated 291 (280-300); Potassium 3.4 mEq/L (3.5-4.5); Sodium 139 mEq/L (136-145); eGFR For African Americans > 60 (> 60); eGFR For Non-African Americans > 60 (> 60)
[2016-08-15] MEDS ORDERED: Magnesium Sulfate 2 GM in D5% in Water 100 ML IVPB ONE (08:04)
[2016-08-15] MEDS: Cefdinir 300 MG CAPSULE PO SCH (08:12)
[2016-08-15] MEDS: Gabapentin 300 MG CAPSULE PO SCH ×2 (08:13→16:12)
[2016-08-15] MEDS ORDERED: Aspirin 81 MG TAB.CHEW PO SCH (09:00)
[2016-08-15] MEDS ORDERED: amLODIPine 5 MG TABLET PO SCH (09:00)
[2016-08-15 11:18] VITALS: BP 117/75
--- NOTE | 2016-08-15 15:42 | Discharge Summary ---
Date of Encounter: 08/16/16 Time of Encounter: 15:42 - Discharge Diagnosis (1) Severe sepsis Priority: Primary Status: Acute (2) Acute metabolic encephalopathy Priority: Primary Status: Resolved (3) UTI (urinary tract infection) Priority: Primary Status: Acute Qualifiers: Urinary tract infection type: acute cystitis Hematuria presence: without hematuria Qualified Code(s): N30.00 - Acute cystitis without hematuria (4) Parkinsons disease Priority: Secondary Status: Chronic (5) Anemia Priority: Secondary Status: Chronic Qualifiers: Anemia type: unspecified type Qualified Code(s): D64.9 - Anemia, unspecified - Discharge Medications Prescriptions: Cefdinir [Omnicef] 300 mg PO BID #8 capsule Home Medications: Atenolol [Tenormin] 25 mg PO DAILY 02/21/16 [History] Carbidopa/Levodopa 25/100 [Sinemet 25/100] 2.5 tab PO 5XD 02/21/16 [History] Citalopram [CeleXA] 20 mg PO DAILY 02/21/16 [History] Omeprazole [PriLOSEC] 20 mg PO DAILY 02/21/16 [History] Simvastatin [Zocor] 20 mg PO HS 02/21/16 [History] Cyanocobalamin (Vitamin B-12) [Vitamin B12] 1,000 mcg PO DAILY 08/12/16 [History ] Gabapentin [Neurontin] 300 mg PO TID 08/12/16 [History] Aspirin 81 mg PO DAILY tab.chew 08/15/16 [Rx] Cefdinir [Omnicef] 300 mg PO BID #8 capsule 08/15/16 [Rx] Allergies/Adverse Reactions: Allergies Sulfa (Sulfonamide Antibiotics) Adverse Reaction (Verified 08/12/16 13:02) Hives Date of admission: 08/13/16 10:49 Primary care physician: Nir Evans MD Consults: 08/14/16 08:08 Consult to Occupational Therapy [CONS] Routine Comment: Evaluate, develop and implement POC Reason for Consult: weakness Consult to Physical Therapy [CONS] Routine Comment: Evaluate, develop and implement POC Reason for Consult: weakness - Patient Status Disposition: Home, Self-Care Condition: Good Functional capacity at discharge: uses cane/walker Overall status at discharge: patient is progressing back to baseline - Discharge Instructions Instructions: Urinary Tract Infection in Men (DC), Sepsis (DC) Follow Up With: Nir Evans MD [Primary Care Provider] - 08/22/16 10:00 am Forms: ED Satisfaction Letter Additional Instructions: PLEASE CHECK YOUR BLOOD PRESSURE TWICE DAILY (SAME TIME EVERY DAY IN THE MORNING AND EVENING). WRITE DOWN THE NUMBERS AND BRING RECORD TO DOCTOR'S APPOINTMENT. - Diet and Activity Activity: as per physical therapy Diet: regular diet Interval History: patient feels better compared to admission. he is eager to go home and declines rehab placement. Hospital course: Mr. Elliott is a 76 year old male with past medical history of Parkinson disease and hypertension who presented with a chief complaint of changes in mental status and a generalized weakness. The patient was admitted with diagnosis of sepsis secondary to urinary tract infection and metabolic encephalopathy. He was started on IV fluid hydration and an antibiotic antibiotics with clinical improvement of his symptoms. His mental status went back to baseline; however, patient needed 2 person assist to get out of bed and do any ambulation. Physical therapy assessed the patient and recommended rehabilitation placement. Initially patient agreed but then he changed his mind and wanted to go home. Urine cultures were negative. Antibiotics were decreased escalated to only cefdinir. He remained asymptomatic and hemodynamically stable. His blood pressure was elevated on admission but it improved at discharge. 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 Patient was instructed to check his blood pressure daily. PLAN: Outpatient rehabilitation. Follow-up with primary care physician next week for HTN and chronic anemia. Patient verbalized understanding and agreed with the plan. All questions answered. - Time Spent with Patient Total time spent providing and/or coordinating discharge services: - Constitutional Vitals: Temp Pulse Resp BP Pulse Ox 98.5 F 75 18 117/75 95 08/15/16 11:16 08/15/16 11:50 08/15/16 11:16 08/15/16 11:16 08/15/16 11:16 General appearance: Present: cooperative, A&O X 3, pleasant, no acute distress, answers questions appropriately - Neck Neck exam general surgery: Present: supple, trachea midline. Absent: lymphadenopathy - Respiratory Respiratory exam: Present: CTAB - Cardiovascular Cardiovascular exam: Present: RRR - GI/Abdominal GI/Abdominal exam: Present: normal bowel sounds, soft. Absent: distended, tenderness - Extremities Exam Extremities exam: Absent: pedal edema - Back Exam Back exam: Absent: CVA tenderness (L), CVA tenderness (R) - Neurological Exam Neurological exam: Present: alert, oriented X3, no focal deficits. Absent: facial droop Additional comments: Parkinson's features including lack of facial expression, resting hand tremors, rigidity. - Skin Skin exam: Absent: rash
== END 2016-08-15 16:25 | disposition home or self-care (01) | DRG 871 ==
LOC: EMEROO 12:43 → 2NNU 12:43 → SUATTDRO 08-13 10:49
PROVIDERS: ADMIT Internal Medicine Endocrinology, Diabetes & Metabolism; ATTEND Internal Medicine

== ENCOUNTER 2016-08-27 12:42 | Observation (INO) ==
--- NOTE | 2016-08-27 13:10 | Emergency Department Note ---
Disposition Clinical Impression: Pyuria Syncope Qualifiers: Syncope type: unspecified Qualified Code(s): R55 - Syncope and collapse Disposition: Admitted As Inpatient Condition: Fair Time of Disposition: 15:23 Syncope HPI - General Stated Complaint: syncope Time Seen by Provider: 08/27/16 12:58 Nursing Notes Reviewed: Yes Vital Signs Reviewed: Yes - History of Present Illness HPI Narrative: Mr. Elliott, 76-year-old male, arise from home via EMS with chief complaint of syncopal episode. Occurred once this morning after exiting the shower. This was witnessed by the patient's daughter. She describes her father teetering forward with a blank look on his face. She sat him on the commode where his mouth was gaped open and his eyes were deviated to the upper right. He was not responding to her voice. He slid off the commode onto the floor. She notes he did bump his head on a towel rack in toilet paper corral. Total duration of symptoms is 2-4 minutes. He has no recollection of this event. He states that it was abrupt in onset with no prodromal symptoms. This has never occurred to him in the past. PMH: Hypertension, Parkinson's, remote TIA with no residual effects. No history of CAD, IN, or pacemaker. He does have a bladder stimulator. ROS: Admits to generalized weakness. Denies fever, chills, nausea, vomiting, changes in vision, dizziness, focal weakness. - Related Data Home Medications Medication Instructions Recorded Confirmed Atenolol [Tenormin] 25 mg PO DAILY 02/21/16 08/12/16 Carbidopa/Levodopa 25/100 [Sinemet 2.5 tab PO 5XD 02/21/16 08/13/16 25/100] Citalopram [CeleXA] 20 mg PO DAILY 02/21/16 08/12/16 Omeprazole [PriLOSEC] 20 mg PO DAILY 02/21/16 08/12/16 Simvastatin [Zocor] 20 mg PO HS 02/21/16 08/12/16 Cyanocobalamin (Vitamin B-12) 1,000 mcg PO DAILY 08/12/16 08/12/16 [Vitamin B12] Gabapentin [Neurontin] 300 mg PO TID 08/12/16 08/12/16 Previous Rx's Medication Instructions Recorded Aspirin 81 mg PO DAILY tab.chew 08/15/16 Cefdinir [Omnicef] 300 mg PO BID #8 capsule 08/15/16 levoFLOXacin [Levaquin] 500 mg PO DAILY #9 tablet 08/17/16 Allergies Allergy/AdvReac Type Severity Reaction Status Date / Time Sulfa (Sulfonamide AdvReac Hives Verified 08/12/16 13:02 Antibiotics) All systems ED: reviewed and negative except as stated. Past Medical History - Past Medical History Medical history: Reports: hyperlipidemia, hypertension, TIA, other Surgical history: Reports: orthopedic, other Psychiatric history: Reports: no psych history - Social History Smoking Status: Never smoker Smokeless Tobacco Status: No Alcohol use: Reports: none Drug use: Reports: none Physical Exam Vital signs reviewed. General: Patient is alert, oriented, and in no acute distress. HEENT: No facial asymmetry. Head is normocephalic and atraumatic. PERRLA, EOMI. Nasal turbinates moist and pink. Posterior pharynx without exudates or cobblestoning. Trachea midline. Cardiovascular: Heart regular rate and rhythm without clicks, rubs, gallops, or murmurs. No JVD. PMI nondisplaced. Respiratory: Symmetric chest rise with good respiratory effort. Bilateral breath sounds are clear without wheezing, crackles, or rhonchi. Abdomen: Bowel sounds present normoactive x-4 quadrants. Abdomen is soft, nondistended, and nontender. Musculoskeletal: Muscle strength 5/5 and symmetric bilaterally in upper and lower extremities. Neuro: Cranial nerves II through XII without deficit. Sensation light touch intact. No limb drift in upper or lower extremities. Negative rapid alternating hands. Negative [id number]. Psych: Patient's affect is appropriate for situation. Course Course Narrative: Initial concern is for syncope of cardiac etiology. Chest x-ray and CT head unremarkable for acute changes. EKG does show a paced rhythm however the patient does not have a pacemaker in place; likely due to bladder stimulator. Laboratory workup does show yeast and the patient's urine likely from chronic bladder retention given his bladder stimulator. Otherwise hyperkalemia. Update the family on workup thus far as well as concern for syncope and pyuria. They agree to admission and had no additional questions or concerns at this time. 15:15 Spoke with the admitting hospitalist, Dr. Delatorre, who agrees to accept the patient for continued syncopal workup as well as pyuria. Vital Signs Temperature 97.7 F 08/27/16 13:00 Pulse Rate 66 08/27/16 13:00 Respiratory Rate 16 08/27/16 13:00 Blood Pressure 103/57 08/27/16 13:00 O2 Sat by Pulse Oximetry 95 08/27/16 13:00 Temperature 97.7 F 08/27/16 13:00 Pulse Rate 66 08/27/16 14:44 Respiratory Rate 16 08/27/16 14:44 Blood Pressure 115/58 08/27/16 14:44 O2 Sat by Pulse Oximetry 95 08/27/16 14:44 Oxygen Delivery Oxygen Delivery Room Air Syncope - Medical Records Medical records reviewed: Yes I reviewed the patient's medical records. - Lab Data Lab results reviewed: Yes I reviewed the patient's lab results. Result diagrams: 08/27/16 13:56 08/27/16 13:56 Lab Results 08/27/16 08/27/16 08/27/16 Range/Units 13:56 13:56 13:56 WBC 10.3 (4.3-11.1) K/mcL RBC 4.17 L (4.19-5.50) M/mcL Hgb 12.3 L (12.9-16.9) g/dL Hct 38.9 (37.5-50.1) % MCV 93.3 (83.0-100.0) fL MCH 29.5 (28.0-33.3) pg MCHC 31.6 (31.6-35.5) g/dL RDW 12.8 (11.5-14.5) % Plt Count 278 (140-400) K/mcL MPV 9.5 (9.4-12.4) fL Immature Gran % 1.0 (0-4) % Seg Neutrophils % 83.9 % Lymphocytes % 7.2 % Monocytes % 7.2 % Eosinophils % 0.4 % Basophils % 0.3 % Neutrophils # 8.7 (1.6-8.9) K/mcL Lymphocytes # 0.7 (0.6-4.6) K/mcL Monocytes # 0.7 (0.0-1.3) K/mcL Eosinophils # 0.0 (0.0-0.6) K/mcL Basophils # 0.0 (0.0-0.2) K/mcL Sodium 136 (136-145) mEq/L Potassium 4.7 H (3.5-4.5) mEq/L Chloride 99 (98-109) mEq/L Carbon Dioxide 29 (19-29) mEq/L BUN 29 H (8-26) mg/dL Creatinine 1.31 H (0.72-1.25) mg/dL Est GFR ( Amer) > 60 (> 60) Est GFR (Non-Af Amer) 53 L (> 60) BUN/Creatinine Ratio 22 (6-26) Glucose 165 H (70-99) mg/dL Calculated Osmolality 292 (280-300) Calcium 9.4 (8.6-10.8) mg/dL Troponin I 0.00 (0-0.03) ng/mL Urine Color (Yellow) Urine Clarity (Clear) Urine pH (5.0-8.0) pH Units Ur Specific [place] (1.010-1.025) Urine Protein (Neg-Trace) mg/dL Urine Glucose (UA) (Normal) mg/dL Urine Ketones (Negative) mg/dL Urine Blood (Negative) Urine Nitrite (Negative) Urine Bilirubin (Negative) Urine Urobilinogen (Normal) mg/dL Ur Leukocyte Esterase (Negative) Urine Microscopic RBC (0-3) per hpf Urine Microscopic WBC (0-3) per hpf Ur Squamous Epith Cells (None-Few) per lpf Amorphous Sediment (Few) Urine Bacteria (None-Few) per hpf Hyaline Casts Urine Yeast (None Seen) per hpf 08/27/16 Range/Units 14:14 WBC (4.3-11.1) K/mcL RBC (4.19-5.50) M/mcL Hgb (12.9-16.9) g/dL Hct (37.5-50.1) % MCV (83.0-100.0) fL MCH (28.0-33.3) pg MCHC (31.6-35.5) g/dL RDW (11.5-14.5) % Plt Count (140-400) K/mcL MPV (9.4-12.4) fL Immature Gran % (0-4) % Seg Neutrophils % % Lymphocytes % % Monocytes % % Eosinophils % % Basophils % % Neutrophils # (1.6-8.9) K/mcL Lymphocytes # (0.6-4.6) K/mcL Monocytes # (0.0-1.3) K/mcL Eosinophils # (0.0-0.6) K/mcL Basophils # (0.0-0.2) K/mcL Sodium (136-145) mEq/L Potassium (3.5-4.5) mEq/L Chloride (98-109) mEq/L Carbon Dioxide (19-29) mEq/L BUN (8-26) mg/dL Creatinine (0.72-1.25) mg/dL Est GFR ( Amer) (> 60) Est GFR (Non-Af Amer) (> 60) BUN/Creatinine Ratio (6-26) Glucose (70-99) mg/dL Calculated Osmolality (280-300) Calcium (8.6-10.8) mg/dL Troponin I (0-0.03) ng/mL Urine Color Yellow (Yellow) Urine Clarity Turbid A (Clear) Urine pH 6.0 (5.0-8.0) pH Units Ur Specific [place] 1.016 (1.010-1.025) Urine Protein Negative (Neg-Trace) mg/dL Urine Glucose (UA) Normal (Normal) mg/dL Urine Ketones Negative (Negative) mg/dL Urine Blood Moderate H (Negative) Urine Nitrite Negative (Negative) Urine Bilirubin Negative (Negative) Urine Urobilinogen Normal (Normal) mg/dL Ur Leukocyte Esterase Large H (Negative) Urine Microscopic RBC 5-15 H (0-3) per hpf Urine Microscopic WBC TNTC H (0-3) per hpf Ur Squamous Epith Cells Many H (None-Few) per lpf Amorphous Sediment Few (Few) Urine Bacteria Many H (None-Few) per hpf Hyaline Casts Test Not Performed Urine Yeast Few H (None Seen) per hpf - Radiology Data Radiology results reviewed: Yes I reviewed the patient's radiology results. Chest X-Ray 08/27/16 13:17 IMPRESSION: No evidence of acute cardiopulmonary disease. D/ / José Roque MD / José Roque MD Interpreting Provider: José Roque MD Head CT 08/27/16 13:17 IMPRESSION: 1. No acute intracranial abnormality. 2. Large areas of hypoattenuation in the periventricular and subcortical white matter, unchanged. This could represent severe small vessel ischemic change, however other etiologies such as autoimmune disease are not excluded. Consider MRI for further evaluation. D/ / 08/27/2016 14:32:22 Katherin Alatorre MD / [email or web address] Interpreting Provider: Katherin Alatorre MD - EKG Data EKG attestation: Yes I reviewed and interpreted this EKG. EKG results narrative: EKG dated 08/27/16 at 12:52 interpreted as paced with atrial lead. Rate of 64. Compared to previous dated 08/12/2016 also showing atrial pacer.
--- NOTE | 2016-08-27 13:31 | Emergency Department Note ---
START Narrative - START START: I examined this patient and my medical decision-making was reviewed with the ELECTRICAL SOFTWARE ENGINEER/PA/Advanced Practice Nurse/Resident Physician. I agree with the documented findings, disposition and treatment plan as described except to the extent set forth below. ED attending note: Patient seen with emergency medicine resident Dr Pruitt. We independently evaluated the patient. We independently had [id number] contact with the patient. Please see a copy of his note for details of the history and physical, evaluation, management and disposition of this emergency Department patient. Briefly: 76 -year-old male via EMS for syncope. Patient was at home after a shower sat on commode stared her eyes deviated up into the right. Patient then had staring spell and then lost tone and fell against the wall hitting his head against a towel rack and toilet paper corral. Patient offers no complaints now awake and alert GCS 15 and a NIH score of 0. Patient is on aspirin no other anticoagulants or antiplatelets. No signs of external hematoma or step-off neck is supple just came back to noncontrast head CT EKG shows a paced rhythm without ectopy. Waiting for labs. Disposition pending although admission anticipated.
[2016-08-27 14:08] LABS: Eosinophils % 0.4 %; Hematocrit 38.9 % (37.5-50.1); Hemoglobin 12.3 g/dL (12.9-16.9); Lymphocytes % 7.2 %; Mean Corpuscular HGB Conc 31.6 g/dL (31.6-35.5); Mean Corpuscular Hemoglobin 29.5 pg (28.0-33.3); Mean Corpuscular Volume 93.3 fL (83.0-100.0); Mean Platelet Volume 9.5 fL (9.4-12.4); Monocytes % 7.2 %; Platelet Count 278 K/mcL (140-400); Red Blood Count 4.17 M/mcL (4.19-5.50); Red Cell Distribution Width 12.8 % (11.5-14.5); Segmented Neutrophils % 83.9 %
[2016-08-27 14:09] LABS: Basophils % 0.3 %; Lymphocytes # 0.7 K/mcL (0.6-4.6); Monocytes # 0.7 K/mcL (0.0-1.3); Neutrophils # 8.7 K/mcL (1.6-8.9)
[2016-08-27 14:20] LABS: BUN/Creatinine Ratio 22 (6-26); Blood Urea Nitrogen 29 mg/dL (8-26); Calcium 9.4 mg/dL (8.6-10.8); Carbon Dioxide 29 mEq/L (19-29); Chloride 99 mEq/L (98-109); Glucose 165 mg/dL (70-99); Osmolality,Calculated 292 (280-300); Potassium 4.7 mEq/L (3.5-4.5); Sodium 136 mEq/L (136-145); eGFR For African Americans > 60 (> 60); eGFR For Non-African Americans 53 (> 60)
[2016-08-27 14:30] LABS: Bilirubin,Urine Negative (Negative); Blood,Urine Moderate (Negative); Clarity,Urine Turbid (Clear); Color,Urine Yellow (Yellow); Glucose,Urine (UA) Normal (Normal); Ketones,Urine Negative (Negative); Leukocyte Esterase,Urine Large (Negative); Nitrite,Urine Negative (Negative); Protein,Urine Negative (Neg-Trace); Specific Gravity,Urine 1.016 (1.010-1.025); Urobilinogen,Urine Normal (Normal)
[2016-08-27 14:31] LABS: Bacteria,Urine Many per hpf (None-Few); Squamous Epithelial Cell,Urine Many per lpf (None-Few); WBC,Urine TNTC per hpf (0-3)
[2016-08-27 14:49] LABS: Amorphous Sediment,Urine Few (Few); Yeast,Urine Few per hpf (None Seen)
[2016-08-27] MEDS ORDERED: Ondansetron 4 MG/2 ML VIAL IVP PRN (16:41)
[2016-08-27] MEDS ORDERED: Acetaminophen 325 MG TABLET PO PRN (16:41)
[2016-08-27] MEDS ORDERED: Naloxone 0.4 MG/ML INJ IVP PRN (16:41)
--- NOTE | 2016-08-27 16:45 | Internal Med History&Physical ---
Date of Encounter: 08/27/16 Time of Encounter: 15:40 Assessment and Plan (1) Syncope Current visit: Yes Status: Acute Patient has what appears to be a vasovagal syncope. Very low suspicion for seizures. We will cycle cardiac enzymes. Telemetry. However, given patient's age, we will obtain an echocardiogram and a stress test. If the echocardiogram is negative and the patient's stress test is negative, likely discharge home tomorrow. Physical therapy consult. Patient will also be given intravenous fluids. Qualifiers: Syncope type: unspecified Qualified Code(s): R55 - Syncope and collapse (2) Parkinsons disease Current visit: Yes Status: Chronic Continue patient's home medications. Physical therapy. (3) Dehydration Current visit: Yes Status: Acute Patient has mild elevation in BUN/creatinine likely due to dehydration. Patient will be given intravenous fluids and renal function and urine output will be monitored. Avoid nephrotoxic agents and hypotension. If his renal function does not get better, we will consider renal ultrasound. (4) Hyperkalemia Current visit: Yes Status: Acute Mild hyperkalemia. We will monitor with fluid hydration. Internal Medicine - H&P: HPI Chief complaint: Syncope Admitted From: Emergency Dept Plans for Post Hospital Care: Home History of present illness: Mr. Elliott is a 76 year old male with Parkinson's disease presents to the ER brought in by family due to a syncopal episode. It was witnessed by the daughter who is at the bedside and provided history. According to the daughter, the patient was on the commode. After he was done, he started getting up being helped by the daughter. After he stood up, the daughter states that he started swaying and was about to fall to the front. However, she made him sit on the commode so that he does not fall. Even after sitting back on the commode, the patient lost consciousness and fell down and the daughter was unable to hold him from falling down. She states that while he was falling down he rolled up his eyes and became very pale. He was down for about 3-4 minutes. After that, he regained consciousness and was able to recognize his daughter and where he was. He did not have any confusion. However, he did not remember the episode after he came to. He did not pass urine or soiled himself during this episode. He did not bite his tongue. He denies any recent history of fever, chills, chest pain, shortness of breath, palpitations or feeling lightheaded. He denies any prodromal symptoms before he passed out. He denies any abdominal pain, vomiting. He reports chronic constipation alternating with diarrhea. He uses a condom catheter all the time as he has urinary incontinence. Past Med Surg Social Fam HX - Past Medical History Attestation: Yes The following information was validated with the patient. Source: patient, obtained from family Medical history: hyperlipidemia, hypertension, TIA, other (Parkinson's disease) Psychiatric history: no psych history - Past Surgical History Surgical History: orthopedic, other - Social History Smoking Status: Never smoker Smokeless Tobacco Status: No Alcohol use: none Drug use: none Current living situation: Home, With Family Activity Level: Uses cane/walker Recent Out of Country Travel Within the Last 8 Weeks: No Exposure or Possible Exposure to Illness During Travel: No - Additional Family History Additional family history: Reviewed; not pertinent Internal Medicine - H&P: Meds Atenolol [Tenormin] 25 mg PO DAILY 02/21/16 [History] Carbidopa/Levodopa 25/100 [Sinemet 25/100] 2.5 tab PO 5XD 02/21/16 [History] Citalopram [CeleXA] 20 mg PO DAILY 02/21/16 [History] Omeprazole [PriLOSEC] 20 mg PO DAILY 02/21/16 [History] Simvastatin [Zocor] 20 mg PO HS 02/21/16 [History] Cyanocobalamin (Vitamin B-12) [Vitamin B12] 1,000 mcg PO DAILY 08/12/16 [History ] Gabapentin [Neurontin] 300 mg PO TID 08/12/16 [History] Aspirin 81 mg PO DAILY tab.chew 08/15/16 [Rx] Ciprofloxacin [Cipro] 500 mg PO BID 08/27/16 [History] Allergies levofloxacin [From Levaquin] Allergy (Verified 08/27/16 16:01) Swelling of Lip/Tongue/Throat Swelling in the hands/feet Sulfa (Sulfonamide Antibiotics) Allergy (Verified 08/27/16 16:01) Hives All Systems PM: A 10-system review of systems was performed and is negative for pertinent findings except as documented above in the HPI. Review of systems: 10 systems have been reviewed and are negative except as mentioned in the history of present illness - Constitutional Vitals: Temp Pulse Resp BP Pulse Ox 97.6 F 68 16 108/66 95 08/27/16 16:28 08/27/16 16:28 08/27/16 16:28 08/27/16 16:28 08/27/16 16:28 Exam: Gen.: Lying in bed. No acute distress. Eyes: Pupils equal, round and reactive to light. Extraocular muscles intact. ENT: Moist mucous membranes. No oropharyngeal erythema or discharge. Chest: Clear to auscultation bilaterally. No adventitious sounds present. CVS: First and second heart sounds present. No murmurs, rubs or gallops. Abdomen: Soft, nontender, nondistended. Bowel sounds present. No hepatosplenomegaly. Skin: No decubitus ulcers appreciated. ORTHOTIC ASSISTANT: No focal neuro deficits present. Psychiatric: Alert, awake and oriented to time, place and person. Lymphatic system: No lymphadenopathy appreciated Internal Med - H&P Results - Labs CBC & Chem 7: 08/27/16 13:56 08/27/16 13:56 - EKG Data -: EKG Interpreted by Myself (Bladder stimulator pacer spikes seen in the EKG) EKG shows normal: sinus rhythm Rate: normal - Diagnostic Studies Chest x-ray Status: image reviewed by me (No acute abnormality or infiltrate detected)
[2016-08-27] MEDS: 0.9 % Sodium Chloride 1,000 ML IVC SCH (17:35)
[2016-08-27] MEDS: Carbidopa/Levodopa 25/100 TABLET PO SCH ×2 (18:35→23:45)
[2016-08-27] MEDS: Gabapentin 300 MG CAPSULE PO SCH (21:50)
[2016-08-27] MEDS: *HR* Heparin 5,000 UNIT/ML VIAL SQ SCH (23:51)
[2016-08-28] MEDS ORDERED: Regadenoson 0.4 MG/5 ML SYRINGE IVP ONE (06:18)
[2016-08-28] MEDS: Carbidopa/Levodopa 25/100 TABLET PO SCH ×3 (06:49→12:59)
[2016-08-28] MEDS: *HR* Heparin 5,000 UNIT/ML VIAL SQ SCH ×2 (06:49→12:59)
[2016-08-28] MEDS ORDERED: Cyanocobalamin (B-12) 1,000 MCG TABLET PO SCH (09:00)
[2016-08-28] MEDS ORDERED: Aspirin 81 MG TAB.CHEW PO SCH (09:00)
[2016-08-28] MEDS: Gabapentin 300 MG CAPSULE PO SCH ×2 (09:10→15:15)
[2016-08-28] MEDS: 0.9 % Sodium Chloride 1,000 ML IVC SCH (09:45)
--- NOTE | 2016-08-28 09:59 | ECHO - Doppler Report ---
Echocardiogram Name: Yassine Elliott Date of Study: 08/27/2016 Date: 1940 Ht: 72.0 in Medical Record#: [id number] Age: 76 Wt: 190.0 lb Gender: Male BSA: 2.08 Order #: [id number] Location: [facility] Room #: [id number] Reading Physician: Zarina Ibarra DO Ticket Manager: Chantel Saleem Ordering Physician: Benji Delatorre MD Primary Physician: Nir Evans MD Indications: Syncope Impressions: Technically challenging-not all myocardial segments were well visualized LV systolic function appears normal, EF 55%. Normal right ventricular size and function. Mild- moderate aortic regurgitation. No pulmonary hypertension. Findings: Study Quality * Technically challenging exam. ECG Findings * Normal sinus rhythm. Left Ventricle * Normal LV chamber size, wall thickness and function. * Mild left ventricular diastolic dysfunction. * LVEF 55%. Left Atrium * Normal left atrial size. Mitral Valve * Normal mitral valve structure. * No mitral stenosis. * Trace mitral regurgitation. Aortic Valve * Aortic valve not well visualized. * Mild-moderate aortic regurgitation. * No aortic stenosis. Tricuspid Valve * Tricuspid valve not well visualized. Pulmonic Valve * Pulmonic valve is not well visualized. * No pulmonic stenosis. * No pulmonic regurgitation. Pulmonary Artery * Pulmonary artery not well visualized. Right Ventricle * Normal right ventricular structure and function. Right Atrium * Normal right atrial size. Interatrial Septum * No evidence of PFO by color Doppler. Pericardium * There is no pericardial effusion present. IVC * The IVC is not dilated. Aorta * Not well visualized. History Hypertension Hypercholesteremia Years 3 Packs 1 Measurements: BP: 130/ 69 2D Normal Values RVIDd: 3.10 cm <2.7 cm IVSd: 1.00 cm 0.6 - 1.0 cm LVIDd: 5.00 cm 3.7 - 5.6 cm LVPWd: 1.00 cm 0.6 - 1.1 cm LVIDs: 3.30 cm 1.5 - 3.6 cm AO: 3.20 cm < 4.0 cm LA: 5.20 cm 2.0 - 4.0cm %FS: 34.00 cm >25 % LA volume: 63 Mitral Valve Peak E:.81 m/sec Peak A:1.01 m/sec E/A Ratio:0.8 Peak E' Lat Jani:9.26 cm/s Peak E' Med Jani:4.97 cm/s E/E' Lat Ratio:8.7 E/E' Med Ratio:16.2 Aortic Valve AI pressure Half-time: 457.00 msec Tricuspid Valve TV Regurg Peak Grad: 18.00mmHg TV Regurg Peak Jani: 2.10m/sec Updated by Zarina Ibarra on 08/28/2016 9:53:55 AM electronically signed on 08/28/2016 9:54:52 AM with status of Final Wall Motion Reddy: 1=Normal, 2=Hypokinesis, 3=Akinesis, 4=Dyskinesis, 5=Aneurysmal, 6=Hyperkinetic, X=Not Visualized (Blank)=Missing
--- NOTE | 2016-08-28 11:49 | Nuclear Medicine Stress Report ---
Regadenoson Nuclear Stress Name: Yassine Elliott Date of Study: 08/28/2016 Date: 1940 Ht: 72.0 in Medical Record#: [id number] Age: 76 Wt: 193.0 lb Gender: Male Order #: [id number] Location: [facility] Room: [facility] Supervising Provider: Katerine Sol CNP Reading Physician: Zarina Ibarra DO Ordering Physician: Lor Conway CNP Primary Care Physician: Nir Evans MD Stress Technologist: Leonid Horowitz, SAROJ, [facility] Business Intelligence Consultant: Marcelo Cox Indications: Chest Pain Impression: Fixed defect in the basal to mid inferior and inferolateral florence with abnormal wall motion. Findings represent infarct. No evidence for ischemia. Pharmacologic ECG was negative for ischemia at the level of heart rate achieved. Gated EF = 51%. History: Hypertension Hypercholesteremia Stress Test Summary: Stress Test Type: Pharmacologic Regadenoson 0.4mg/5ml given IV Baseline Information: Initial Heart Rate: 72 Blood Pressure: 122/78 Stress Information: Stress Time: 4 min 00 sec Test Terminated Due to (primary): As per protocol Maximum Blood Pressure: 104/74 Maximum Heart Rate: 87 Percent Maximum Heart Rate Achieved: 61 Double Product: 9048 METS Reached: 1 Symptoms: No chest symptoms Nuclear Summary: SPECT myocardial perfusion imaging using Tc99m Sestamibi given intravenously was performed at rest and following cardiac stress testing. The resting images were obtained following initial dose of 11.5 mCi. Following stress an additional dose of 33.0 mCi was given at peak exercise or 30 seconds post regadenoson infusion. Medication Given: Time Medication Dose Units Route Findings: Stress Note * Resting ECG demonstrated normal sinus rhythm with nonspecific ST abnormalities. * Pharmacologic stress ECG is negative for ischemia at level of heart rate achieved. * No arrhythmias were noted during stress. * Patient had no chest pain during stress. Hemodynamic responses * Normal hemodynamic responses to pharmacologic stress. Study Quality * Study quality is good. Gated EF % * Gated EF = 51%. Left Ventricle * The left ventricle is not dilated. TID * No evidence of transient ischemic dilatation. Lung Uptake * There is no evidence of increase lung uptake. PERFUSION * There is a small to medium sized fixed perfusion defect involving the basal to mid inferior and inferolateral florence. Wall motion in this area is abnormal. Findings represent infarct. * Other segments demonstrate normal rest and stress perfusion. Updated by Zarina Ibarra on 08/28/2016 11:41:56 AM electronically signed on 08/28/2016 11:44:31 AM with status of Final
[2016-08-28 12:12] VITALS: BP 104/63
--- NOTE | 2016-08-28 16:13 | Discharge Summary ---
Date of Encounter: 08/28/16 Time of Encounter: 11:50 - Discharge Diagnosis (1) Syncope Priority: Primary Status: Acute Comments: Patient had what was most likely a vasovagal syncope episode. Daughter was trying to get him up from the toilet he stood up became dizzy and had to sit back down. Patient states he had no chest pain and says that he has never had anything like this before. He was dehydrated on admission, which was a potential cause of his weakness and witnessed syncopal episode.. With a mild elevation in BUN and creatinine. He was given IV fluids and appears to be euvolemic on examination this morning. Patient had nuclear stress test today. Findings show no evidence for ischemia. Gated EF is 51%. Patient had echocardiogram today. Not all myocardial segments were well visualized. Systolic function appears normal with an EF of 55% is mild to moderate aortic regurgitation and no pulmonary hypertension. Patient denies chest pain Qualifiers: Syncope type: unspecified Qualified Code(s): R55 - Syncope and collapse (2) Dehydration Priority: Secondary Status: Acute Comments: Patient dehydrated on arrival. Slight bump in BUN and creatinine on admission. He has been hydrated IV fluids and appears to be euvolemic. Mucous membranes are pink and moist. He is also tolerating by mouth fluids. This could potentially be a cause or his vasovagal syncope or orthostatic hypotension. He denies dizziness, chest pain, lightheadedness, shortness of breath. (3) Parkinsons disease Priority: Secondary Status: Chronic Comments: Chronic. Continue home medications. (4) UTI (urinary tract infection) Priority: Secondary Status: Acute Comments: Patient is being treated for Pseudomonas UTI. He has been on Cipro twice a day since August 20. I did speak with RAND Richardson and states the patient is being treated appropriately. He was treated initially for 10 days. I will extend his prescription for 4 more days. Patient has a bladder stimulator due to Parkinson's disease and what family describes as difficulty with his urine flow. He has had chronic UTI and has been on antibiotics since the beginning of August and has been to the hospital at least 2-3 times this month for same. Patient does have an appointment with urology tomorrow and will discuss results , antibiotic, and possible removal of stimulator. He denies any urinary symptoms. Qualifiers: Urinary tract infection type: acute cystitis Hematuria presence: without hematuria Qualified Code(s): N30.00 - Acute cystitis without hematuria (5) DVT prophylaxis Priority: Secondary Status: Acute - Discharge Medications Prescriptions: Ciprofloxacin [Cipro] 500 mg PO BID #8 tablet Home Medications: Atenolol [Tenormin] 25 mg PO DAILY 02/21/16 [History] Carbidopa/Levodopa 25/100 [Sinemet 25/100] 2.5 tab PO 5XD 02/21/16 [History] Citalopram [CeleXA] 20 mg PO DAILY 02/21/16 [History] Omeprazole [PriLOSEC] 20 mg PO DAILY 02/21/16 [History] Simvastatin [Zocor] 20 mg PO HS 02/21/16 [History] Cyanocobalamin (Vitamin B-12) [Vitamin B12] 1,000 mcg PO DAILY 08/12/16 [History ] Gabapentin [Neurontin] 300 mg PO TID 08/12/16 [History] Aspirin 81 mg PO DAILY tab.chew 08/15/16 [Rx] Ciprofloxacin [Cipro] 500 mg PO BID #8 tablet 08/28/16 [Rx] Allergies/Adverse Reactions: Allergies levofloxacin [From Levaquin] Allergy (Verified 08/27/16 16:01) Swelling of Lip/Tongue/Throat Swelling in the hands/feet Sulfa (Sulfonamide Antibiotics) Allergy (Verified 08/27/16 16:01) Hives Procedures/tests Complete & Pending: Procedures Performed prior 72 hours Category Date Time Status NM zee perf SPECT multi [NM] Routine Exams 08/27/16 16:42 Taken EV echocardiogram Routine Y 08/27/16 16:41 Completed SP pharm nuclear stress Routine Y 08/27/16 16:41 Completed Date of admission: 08/27/16 15:29 Primary care physician: Nir Evans MD Consults: 08/27/16 16:42 Consult to Physical Therapy [CONS] Routine Comment: Evaluate, develop and implement POC Reason for Consult: Falls; Syncope 08/28/16 11:20 Consult to Multiple Drill Operator [CONS] Routine Reason for SW Consult: Discharge planning Discharging clinician: Brittny Carrington Anticipated date of discharge: 08/28/16 - Patient Status Disposition: Home, Self-Care Condition: Good Functional capacity at discharge: uses cane/walker Overall status at discharge: patient is progressing back to baseline - Discharge Instructions Forms: ED Satisfaction Letter Additional Instructions: Please make sure that you are drinking plenty of fluids every day to avoid dehydration Follow up with Dr Torres tomorrow as scheduled. Return to the ER as needed for any other problems or concerns. - Diet and Activity Activity: increase activity as tolerated Diet: advance to your usual diet Interval History: Mr. Bhagat is a 76-year-old male with Parkinson's disease, chronic urinary tract infection bladder stimulator who has been treated several times this month and admitted twice this month for urinary tract infection, sepsis. Patient was admitted this time for what appeared to be vasovagal syncope. He was on the toilet and she attempted to have him stand up and he started swaying and almost fell forward. She made him sit down on the commode again and he lost consciousness and fell down. Daughter was unable to hold him and that his eyes rolled up and essentially became very pale. She reports that he was down for about 45 minutes and did not stop breathing. Patient does not remember this episode but was able to recognize his daughter and speak immediately. He is not confused. He is pleasant and alert and oriented. Patient has a bladder stimulator due to Parkinson's. He has had a urinary tract infection per daughter per since August 10 of this year. He had the bladder stimulator implanted in February 2016. He started on Cipro on August 20 for 10 days for Pseudomonas UTI. Daughter was speaking with long term care social worker and expressed frustration with care the patient has been receiving and questioning why he is not getting any better and why he was septic and why he had a syncopal episode. I did discuss with her that all the tests results were negative, I spoke with infectious disease on the phone in the patient's room with daughter present. Patient is being treated appropriately with Cipro, I will extend the course for 4 more days for a total of 14 days. Daughter says that she would like to have the bladder stimulator removed since this could be the potential source of infection. I did offer to call urology temperature control inspector and see if Dr. Torres with see patient here, however patient does have an appointment with him in the office tomorrow. Daughter states that she feels fine taking patient home and patient states that he is fine to go home. I was in the patient's room initially for evaluation this morning and then at least another 20 minutes tonight discussing test results and options with family. Patient had pharmacologic stress today was negative for ischemia and with the gated EF of 51%. Echocardiogram was technically challenging and not all myocardial segments were well visualized. He has normal systolic function with an EF of 55%, normal RV size and function no pulmonary hypertension, and mild to moderate aortic regurgitation. Patient is stable and appropriate for discharge and will follow up with Dr. Torres tomorrow. Hospital course: Mr. Elliott is a 76 year old male - Time Spent with Patient Total time spent providing and/or coordinating discharge services: Greater than 30 minutes - Constitutional Vitals: Temp Pulse Resp BP Pulse Ox 97.4 F L 63 16 104/63 96 08/28/16 12:11 08/28/16 12:11 08/28/16 12:11 08/28/16 12:11 08/28/16 12:11 General appearance: Present: cooperative, A&O X 3, pleasant, no acute distress, answers questions appropriately - Head Head exam: Present: normal inspection - Eye Eye exam: Present: normal appearance, conjuntiva pink - ENT ENT exam: Present: mucous membranes moist, normal exam - Neck Neck exam general surgery: Present: normal inspection. Absent: lymphadenopathy , tenderness - Respiratory Respiratory exam: Present: CTAB. Absent: rales, respiratory distress, rhonchi, stridor, wheezes - Cardiovascular Cardiovascular exam: Present: RRR, +S1, +S2. Absent: clicks, diastolic murmur, gallop, systolic murmur - GI/Abdominal GI/Abdominal exam: Present: firm, soft. Absent: distended, hepatomegaly, tenderness - Extremities Exam Extremities exam: Present: normal inspection, warm, radial pulses palpable and symetrical. Absent: pedal edema, tenderness - Neurological Exam Neurological exam: Present: alert, oriented X3, no focal deficits, strengths equal and symetr throughout
--- NOTE | 2016-08-28 17:20 | Electrocardiograph Report ---
[place] [id number] Test Date: 2016-08-27 Pat Name: Yassine Elliott Department: 105 Room: 3B46 Gender: M [employer]: : 1940 Requested By: Venkat Pruitt Order Number: [id number] Reading MD: Zarina Ibarra Measurements Intervals [place] Rate: 64 P: -88 OK: 353 QRS: 20 QRSD: 109 T: 21 QT: 430 QTc: 439 Interpretive Statements CONSIDER SINUS RHYTHM ARTIFACT LIMITS INTERPRETATION Electronically Signed On 08-28-2016 17:18:56 EDT by Zarina Ibarra
--- NOTE | 2016-08-29 07:41 | Physician Discharge Referral ---
Home Health/Hosp Referral Info Provider in Charge Post Discharge: PCP - Diagnosis (1) Syncope Priority: Primary Status: Acute (2) Dehydration Priority: Secondary Status: Acute (3) Parkinsons disease Priority: Secondary Status: Chronic (4) UTI (urinary tract infection) Priority: Secondary Status: Acute (5) DVT prophylaxis Priority: Secondary Status: Acute - Respiratory Orders Oxygen / L per min Smoking Cessation: Smoking cessation has been advised. For more information, call the [place] Tobacco Quit Line at 7-726-FBCJ-NOW. - Diet/Nutrition Diet/Nutrition Orders: Regular - Activity Activity Orders: Up ad shikha, Walker - Services Needed Following services are medically necessary services: Nursing, Home Health Aide, Physical Therapy, Occupational Therapy - Transfer Medications Prescriptions: Ciprofloxacin [Cipro] 500 mg PO BID #8 tablet Home Medications: Atenolol [Tenormin] 25 mg PO DAILY 02/21/16 [History] Carbidopa/Levodopa 25/100 [Sinemet 25/100] 2.5 tab PO 5XD 02/21/16 [History] Citalopram [CeleXA] 20 mg PO DAILY 02/21/16 [History] Omeprazole [PriLOSEC] 20 mg PO DAILY 02/21/16 [History] Simvastatin [Zocor] 20 mg PO HS 02/21/16 [History] Cyanocobalamin (Vitamin B-12) [Vitamin B12] 1,000 mcg PO DAILY 08/12/16 [History ] Gabapentin [Neurontin] 300 mg PO TID 08/12/16 [History] Aspirin 81 mg PO DAILY tab.chew 08/15/16 [Rx] Ciprofloxacin [Cipro] 500 mg PO BID #8 tablet 08/28/16 [Rx] Allergies/Adverse Reactions: Allergies levofloxacin [From Levaquin] Allergy (Verified 08/27/16 16:01) Swelling of Lip/Tongue/Throat Swelling in the hands/feet Sulfa (Sulfonamide Antibiotics) Allergy (Verified 08/27/16 16:01) Hives Certification: Further, I certify that my clinical findings support that this patient is homebound (i.e. absences from home require considerable and taxing effort and are for medical reasons or taoism services or infrequently or short duration when for other reasons) because: Homebound Reason: Patient requires assistance of a person or device to safely leave home, Leaving home requires considerable and taxing effort due to condition Attestation: My signature below is to certify that this patient is under my care and that I, or nurse practitioner, or a physician's housekeeper and laundry assistant working with me, has a face-to -face encounter with this patient.
== END 2016-08-28 17:26 | disposition home or self-care (01) ==
LOC: 3BNU 12:42 → EMEROO 12:42 → 3BNU 16:08
PROVIDERS: ADMIT Internal Medicine Sleep Medicine; ATTEND Nurse Practitioner Family